=== PATIENT | male | born 1975 | race Caucasian/White ===

== ENCOUNTER 2018-04-11 06:44 | Observation (INO) ==
--- NOTE | 2018-04-11 07:08 | Emergency Department Note ---
Disposition Clinical Impression: Chest pain Qualifiers: Chest pain type: unspecified Qualified Code(s): R07.9 - Chest pain, unspecified Disposition: Admitted As Inpatient Condition: Fair Referrals: Jay Grider DO [Primary Care Provider] - Forms: ED Satisfaction Letter Time of Disposition: 09:38 Chest Pain HPI - General Chief Complaint: ED Chest Pain Stated Complaint: CP Time Seen by Provider: 04/11/18 06:47 Source: patient Limitations: no limitations Vital Signs Reviewed: Yes Nursing Notes Reviewed: Yes - History of Present Illness HPI Narrative: 42yo male presents from home for evaluation for chest pain. Onset 6am; this awoke him from sleep. Located mid sternal chest pressure with intermittent sharp stabbing pain. Non-radiating. No dyspnea, no nausea, no vomiting. History of GERD however these symptoms feel different. PMH: HTN, GERD Family history: Grandfather had VT in early 50's. ROS: Pos: as above Neg: fever, chills, nausea, vomiring, palpitations, dyspnea, diaphresis, diarrhea, constipation. Severity scale (1-10): 5 - Related Data Home Medications Medication Instructions Recorded Confirmed Lisinopril [Zestril] 40 mg PO DAILY 04/14/15 04/11/18 Metoprolol [Lopressor] 25 mg PO DAILY 04/14/15 04/11/18 Multivitamin [Multivitamins] 1 cap PO DAILY 04/14/15 04/11/18 Omeprazole [PriLOSEC] 20 mg PO DAILY 04/14/15 04/11/18 Ibuprofen [Ibu-200] 600 mg PO 1-2XD PRN 04/11/18 04/11/18 Rosuvastatin Calcium 20 mg PO DAILY 04/11/18 04/11/18 Sildenafil Citrate 50 mg PO DAILY PRN 04/11/18 04/11/18 Allergies Allergy/AdvReac Type Severity Reaction Status Date / Time No Known Allergies Allergy Verified 04/11/18 10:27 All systems ED: reviewed and negative except as stated. Review of Systems: As Per HPI Chest Pain PMH - Past Medical History Medical history: Reports: GERD, hyperlipidemia, hypertension Psychiatric history: Reports: depression - Social History Smoking Status: Former smoker Alcohol use: Reports: occasionally Drug use: Reports: none Physical Exam Vital Signs Reviewed General: Patient is alert, oriented, and in no acute distress. Head: atraumatic, normocephalic Eye: normal appearance, PERRL, EOMI, no scleral icterus, no conjunctival injection ENT: mucous membranes moist, normal external ear exam Neck: normal inspection, trachea midline, full ROM Chest: normal inspection, symmetric chest rise Respiratory: Good respiratory effort. Bilateral breath sounds are clear without wheezing, crackles, or rhonchi. Cardiovascular: Regular rate and rhythm. No clicks, rubs, gallops, or murmors. Faint split S1, normal S2. Abdomen: Bowel sounds present normoactive. Abdomen is soft, nondistended, and nontender. No guarding or rebound. No organomegaly noted. Musculoskeletal: Spontaneously moving all extremities. Skin: warm, dry, intact. Neuro: GCS 15. Alert and oriented 4. No focal neurologic deficits observed. Psych: Patient's affect is appropriate for situation. - General Limitations: no limitations General appearance: alert, in no apparent distress Course Course Narrative: EKG data 04/11/2018 at 06. Troponin I sinus rhythm rate of 74. DC 144, QRS 85, QTC 446. Normal axis. Nonspecific ST-T changes. Compared to previous dated 07/2014 showing no acute ischemic changes comparison. Serum hematology is unremarkable. Serum chemistries unremarkable. This includes a normal troponin. However, this is less than 4 hours before onset of symptoms. Chest x-ray is unremarkable. EKG is unremarkable. I discussed the above with the patient. He is agreeable to admission for chest pain rule out ACS. I am concerned given his story, family history, personal history of hypertension. I discussed the above with the admitting hospitalist, Dr. Faulkner, who agrees to accept the patient for continued evaluation of chest pain. Chest X-Ray 04/11/18 07:09 IMPRESSION: 1. No active pulmonary disease. D/ / Bari Brody MD / Bari Brody MD Interpreting Provider: Bari Brody MD Vital Signs Temperature 98.1 F 04/11/18 06:47 Pulse Rate 74 04/11/18 06:47 Respiratory Rate 18 04/11/18 06:47 Blood Pressure 165/104 04/11/18 06:47 O2 Sat by Pulse Oximetry 100 04/11/18 06:47 Temperature 98.1 F 04/11/18 06:47 Pulse Rate 67 04/11/18 08:45 Respiratory Rate 11 04/11/18 08:45 Blood Pressure 127/99 04/11/18 08:45 O2 Sat by Pulse Oximetry 97 04/11/18 08:45 Oxygen Delivery Oxygen Delivery Room Air Chest Pain - Lab Data Result diagrams: 04/11/18 07:40 04/11/18 07:19 Lab Results 04/11/18 04/11/18 04/11/18 Range/Units 07:09 07:19 07:40 WBC 5.3 (4.3-11.1) K/mcL RBC 4.86 (4.19-5.50) M/mcL Hgb 14.9 (12.9-16.9) g/dL Hct 43.9 (37.5-50.1) % MCV 90.3 (83.0-100.0) fL MCH 30.7 (28.0-33.3) pg MCHC 33.9 (31.6-35.5) g/dL RDW 12.2 (11.5-14.5) % Plt Count 196 (140-400) K/mcL MPV 10.2 (9.4-12.4) fL Immature Gran % 0.2 (0-4) % Seg Neutrophils % 54.5 % Lymphocytes % 26.8 % Monocytes % 9.0 % Eosinophils % 8.6 % Basophils % 0.9 % Neutrophils # 2.9 (1.6-8.9) K/mcL Lymphocytes # 1.4 (0.6-4.6) K/mcL Monocytes # 0.5 (0.0-1.3) K/mcL Eosinophils # 0.5 (0.0-0.6) K/mcL Basophils # 0.1 (0.0-0.2) K/mcL PT 12.6 H (9.4-12.1) Seconds INR 1.1 APTT 32.6 (26.0-36.0) Seconds Sodium 140 (136-145) mEq/L Potassium 3.8 (3.5-5.1) mEq/L Chloride 108 H (98-107) mEq/L Carbon Dioxide 26 (23-29) mEq/L BUN 9 (6-20) mg/dL Creatinine 0.95 (0.70-1.30) mg/dL Est GFR ( Amer) > 60 (> 60) Est GFR (Non-Af Amer) > 60 (> 60) BUN/Creatinine Ratio 9 (6-26) Glucose 97 (70-105) mg/dL Calculated Osmolality 289 (280-300) Calcium 9.4 (8.6-10.3) mg/dL Troponin I < 0.03 (< 0.04) ng/mL Lipase 32 (11-82) Units/L Heart Score - Score History: Moderately Suspicious EKG: Non Specific repolarisation Disturbance Age: Less than 45 Risk Factors: Equal/Greater than 3 risk factor or history of atherosclerotic disease Troponin: Less than normal limit HEART Score Total: 4
[2018-04-11] MEDS ORDERED: Aspirin 325 MG TABLET PO ONE (07:22)
[2018-04-11] MEDS ORDERED: Nitroglycerin 0.4 MG TAB.SUBL SL PRN ×2 (07:25→10:27)
[2018-04-11 07:52] LABS: Basophils # 0.1 K/mcL (0.0-0.2); Basophils % 0.9 %; Eosinophils # 0.5 K/mcL (0.0-0.6); Eosinophils % 8.6 %; Hematocrit 43.9 % (37.5-50.1); Hemoglobin 14.9 g/dL (12.9-16.9); Immature Granulocytes % 0.2 % (0-4); Lymphocytes # 1.4 K/mcL (0.6-4.6); Lymphocytes % 26.8 %; Mean Corpuscular HGB Conc 33.9 g/dL (31.6-35.5); Mean Corpuscular Hemoglobin 30.7 pg (28.0-33.3); Mean Corpuscular Volume 90.3 fL (83.0-100.0); Mean Platelet Volume 10.2 fL (9.4-12.4); Monocytes # 0.5 K/mcL (0.0-1.3); Neutrophils # 2.9 K/mcL (1.6-8.9); Platelet Count 196 K/mcL (140-400); Red Blood Count 4.86 M/mcL (4.19-5.50); Red Cell Distribution Width 12.2 % (11.5-14.5); Segmented Neutrophils % 54.5 %
[2018-04-11 07:59] LABS: INR 1.1; Prothrombin Time 12.6 Seconds (9.4-12.1)
--- NOTE | 2018-04-11 08:00 | Emergency Department Note ---
Disposition Clinical Impression: Chest pain Qualifiers: Chest pain type: unspecified Qualified Code(s): R07.9 - Chest pain, unspecified Disposition: Admitted As Inpatient Condition: Fair Referrals: Jay Grider DO [Primary Care Provider] - Forms: ED Satisfaction Letter General Adult HPI - General Chief complaint: ED Chest Pain Stated complaint: CP Time Seen by Provider: 04/11/18 06:47 Source: patient Limitations: no limitations - History of Present Illness Pain Scale: 5 - Related Data Home Medications Medication Instructions Recorded Confirmed Lisinopril [Zestril] 40 mg PO DAILY 04/14/15 04/11/18 Metoprolol [Lopressor] 25 mg PO DAILY 04/14/15 04/11/18 Multivitamin [Multivitamins] 1 cap PO DAILY 04/14/15 04/11/18 Omeprazole [PriLOSEC] 20 mg PO DAILY 04/14/15 04/11/18 Ibuprofen [Ibu-200] 600 mg PO 1-2XD PRN 04/11/18 04/11/18 Rosuvastatin Calcium 20 mg PO DAILY 04/11/18 04/11/18 Sildenafil Citrate 50 mg PO DAILY PRN 04/11/18 04/11/18 Allergies Allergy/AdvReac Type Severity Reaction Status Date / Time No Known Allergies Allergy Verified 04/11/18 10:27 Past Medical History - Past Medical History Medical history: Reports: GERD, hyperlipidemia, hypertension Psychiatric history: Reports: depression - Social History Smoking Status: Former smoker Smokeless Tobacco Status: Yes (Current tobacco chewing.) Alcohol use: Reports: occasionally Drug use: Reports: none Physical Exam - General Limitations: no limitations General appearance: alert, in no apparent distress Course Vital Signs Temperature 98.1 F 04/11/18 06:47 Pulse Rate 74 04/11/18 06:47 Respiratory Rate 18 04/11/18 06:47 Blood Pressure 165/104 04/11/18 06:47 O2 Sat by Pulse Oximetry 100 04/11/18 06:47 Temperature 98.1 F 04/11/18 06:47 Pulse Rate 75 04/11/18 11:03 Respiratory Rate 17 04/11/18 11:03 Blood Pressure 155/98 04/11/18 11:03 O2 Sat by Pulse Oximetry 98 04/11/18 11:03 Oxygen Delivery Oxygen Delivery Room Air Medical Decision Making - Lab Data Result diagrams: 04/11/18 07:40 04/11/18 07:19 Lab Results 04/11/18 04/11/18 04/11/18 Range/Units 07:09 07:19 07:40 WBC 5.3 (4.3-11.1) K/mcL RBC 4.86 (4.19-5.50) M/mcL Hgb 14.9 (12.9-16.9) g/dL Hct 43.9 (37.5-50.1) % MCV 90.3 (83.0-100.0) fL MCH 30.7 (28.0-33.3) pg MCHC 33.9 (31.6-35.5) g/dL RDW 12.2 (11.5-14.5) % Plt Count 196 (140-400) K/mcL MPV 10.2 (9.4-12.4) fL Immature Gran % 0.2 (0-4) % Seg Neutrophils % 54.5 % Lymphocytes % 26.8 % Monocytes % 9.0 % Eosinophils % 8.6 % Basophils % 0.9 % Neutrophils # 2.9 (1.6-8.9) K/mcL Lymphocytes # 1.4 (0.6-4.6) K/mcL Monocytes # 0.5 (0.0-1.3) K/mcL Eosinophils # 0.5 (0.0-0.6) K/mcL Basophils # 0.1 (0.0-0.2) K/mcL PT 12.6 H (9.4-12.1) Seconds INR 1.1 APTT 32.6 (26.0-36.0) Seconds Sodium 140 (136-145) mEq/L Potassium 3.8 (3.5-5.1) mEq/L Chloride 108 H (98-107) mEq/L Carbon Dioxide 26 (23-29) mEq/L BUN 9 (6-20) mg/dL Creatinine 0.95 (0.70-1.30) mg/dL Est GFR ( Amer) > 60 (> 60) Est GFR (Non-Af Amer) > 60 (> 60) BUN/Creatinine Ratio 9 (6-26) Glucose 97 (70-105) mg/dL Calculated Osmolality 289 (280-300) Calcium 9.4 (8.6-10.3) mg/dL Troponin I < 0.03 (< 0.04) ng/mL Lipase 32 (11-82) Units/L Attestation Statement - Attestation Attestation: I examined this patient and my medical decision-making was reviewed with the Resident Physician. I agree with the documented findings, disposition and treatment plan as described except to the extent set forth below. Patient to the ED with a chief complaint of chest pressure. Central chest. Nonradiating. No nausea vomiting or sweating with it. No cardiac history, but he does have 2 family members with coronary artery disease. He has hypertension and took his medicine last night. On exam is in no acute distress. Heart regular lungs clear. Plan. Cardiac workup. Heart score 4. Troponin negative here. Admitted for further cardiac workup. Chest X-Ray 04/11/18 07:09 IMPRESSION: 1. No active pulmonary disease. D/ / Bari Brody MD / Bari Brody MD Interpreting Provider: Bari Brody MD
[2018-04-11 08:02] LABS: Activated Partial Thrombo Time 32.6 Seconds (26.0-36.0)
[2018-04-11 08:13] LABS: BUN/Creatinine Ratio 9 (6-26); Blood Urea Nitrogen 9 mg/dL (6-20); Calcium 9.4 mg/dL (8.6-10.3); Carbon Dioxide 26 mEq/L (23-29); Chloride 108 mEq/L (98-107); Glucose 97 mg/dL (70-105); Lipase 32 Units/L (11-82); Osmolality,Calculated 289 (280-300); Potassium 3.8 mEq/L (3.5-5.1); Sodium 140 mEq/L (136-145); Troponin I < 0.03 ng/mL (< 0.04); eGFR For Non-African Americans > 60 (> 60)
--- NOTE | 2018-04-11 10:37 | Internal Med History&Physical ---
Date of Encounter: 04/11/18 Time of Encounter: 10:34 Internal Medicine - H&P: HPI Chief complaint: chest pain Admitted From: Home Plans for Post Hospital Care: Home History of present illness: Mr. Camacho is a 42 year old male history of hypertension GERD presenting emergency room for chest pain. Chest pain started this 6 AM, located in the midsternal, pressure-like, 5 out of 10, constant, last for several hours, after nitroglycerin and ASA he still had 2-3 out of 10 pain, no radiations, denies shortness of breath, he does complain of some palpation. Denies nausea vomiting. Vitals stable normal, lab was unremarkable, troponin is negative, EKG has no ST elevation or depression. Patient is placed on observation for echocardiogram and a stress test due to family history of CAD and hypertension. Past Med Surg Social Fam HX - Past Medical History Medical history: GERD, hyperlipidemia, hypertension Psychiatric history: depression - Past Surgical History Additional surgical history: hernia repair - Social History Smoking Status: Former smoker Smokeless Tobacco Status: Yes (Current tobacco chewing.) Alcohol use: occasionally Drug use: none Internal Medicine - H&P: Meds Lisinopril [Zestril] 40 mg PO HS 04/14/15 [History] Metoprolol [Lopressor] 25 mg PO HS 04/14/15 [History] Multivitamin [Multivitamins] 1 each PO HS 04/14/15 [History] Omeprazole [PriLOSEC] 20 mg PO HS 04/14/15 [History] Ibuprofen [Ibu-200] 600 mg PO 1-2XD PRN 04/11/18 [History] Rosuvastatin Calcium 20 mg PO DAILY 04/11/18 [History] Sildenafil Citrate 50 mg PO DAILY PRN 04/11/18 [History] Allergy/AdvReac Type Severity Reaction Status Date / Time No Known Allergies Allergy Verified 04/11/18 10:27 All Systems PM: A 10-system review of systems was performed and is negative for pertinent findings except as documented above in the HPI. - Constitutional Vitals: Temp Pulse Resp BP Pulse Ox 98.1 F 78 18 135/99 99 04/11/18 06:47 04/11/18 09:42 04/11/18 09:42 04/11/18 09:42 04/11/18 09:42 General appearance: Present: A&O X 3, pleasant Exam: CONSTITUTIONAL: Patient appears as an age appropriate male well developed, in no acute distress. EYES Clear sclerae, bilateral pupils are equal, reactive to light and accommodation. Extraocular movements are intact RESPIRATORY: No accessory muscle use, bilateral clear to auscultation, no wheezing, no crackles/rales. CARDIOVASCULAR: Regular heart rate, normal S1 and S2, no murmurs GASTROINTESTINAL: bowel sounds present, soft, no tenderness. No hepatosplenomegaly. No bilateral CVA tenderness MUSCULOSKELETAL: Joints in normal range of motion, no clubbing, no edema, no cyanosis. Bilateral peripheral pulses 2+ LYMPHATIC no lymphadenopathy in neck, groin and axilla bilaterally, no thyromegaly. NEUROLOGIC: CN II to XII are grossly intact, no focal neurological deficit. Deep tendon reflexes 2+ bilaterally. Normal light touch sensation to upper and lower extremity PSYCHIATRIC: Oriented x3, with good insight, mood is euthymic. No hallucinations or delusions. SKIN: Skin warm and dry, no rashes, no open wound. Internal Med - H&P Results - Labs CBC & Chem 7: 04/11/18 07:40 04/11/18 07:19 Labs: Short CBC 04/11/18 Range/Units 07:40 WBC 5.3 (4.3-11.1) K/mcL Hgb 14.9 (12.9-16.9) g/dL Hct 43.9 (37.5-50.1) % Plt Count 196 (140-400) K/mcL Neutrophils # 2.9 (1.6-8.9) K/mcL BMP 04/11/18 07:19 Sodium 140 Potassium 3.8 Chloride 108 H Carbon Dioxide 26 BUN 9 Creatinine 0.95 Glucose 97 Calcium 9.4 Cardiac Enzymes 04/11/18 Range/Units 07:19 Troponin I < 0.03 (< 0.04) ng/mL - Impressions ITS Impressions Chest X-Ray 04/11/18 07:09 IMPRESSION: 1. No active pulmonary disease. D/ / Bari Brody MD / Bari Brody MD Interpreting Provider: Bari Brody MD - Assessment and plan (1) Chest pain Current Visit: Yes Status: Acute Assessment and plan: Chest pain atypical, but in setting of family history of CAD hypertension, will place telemetry check troponins EKG order echocardiogram stress test Qualifiers: Chest pain type: unspecified Qualified Code(s): R07.9 - Chest pain, unspecified (2) GERD (gastroesophageal reflux disease) Current Visit: Yes Status: Acute Assessment and plan: Continue ppi Qualifiers: Esophagitis presence: without esophagitis Qualified Code(s): K21.9 - Gastro-esophageal reflux disease without esophagitis (3) Hypertension Current Visit: Yes Status: Chronic Assessment and plan: Continue lisinopril, metoprolol Qualifiers: Hypertension type: essential hypertension Qualified Code(s): I10 - Essential (primary) hypertension (4) Hyperlipidemia Current Visit: Yes Status: Chronic Assessment and plan: Continue statins Qualifiers: Hyperlipidemia type: unspecified Qualified Code(s): E78.5 - Hyperlipidemia, unspecified - Time Spent With Patient Total time spent is greater than 50% in coordination of care (as documented) at patient's floor/unit and/or counseling patient: Greater than 35 minutes
[2018-04-11] MEDS: Lisinopril 20 MG TABLET PO SCH (11:24)
[2018-04-12 05:18] LABS: Basophils # 0.1 K/mcL (0.0-0.2); Basophils % 0.8 %; Eosinophils # 0.6 K/mcL (0.0-0.6); Eosinophils % 8.5 %; Hematocrit 44.4 % (37.5-50.1); Hemoglobin 14.6 g/dL (12.9-16.9); Immature Granulocytes % 0.3 % (0-4); Lymphocytes # 2.3 K/mcL (0.6-4.6); Lymphocytes % 31.7 %; Mean Corpuscular HGB Conc 32.9 g/dL (31.6-35.5); Mean Corpuscular Hemoglobin 30.1 pg (28.0-33.3); Mean Corpuscular Volume 91.5 fL (83.0-100.0); Mean Platelet Volume 10.6 fL (9.4-12.4); Monocytes # 0.6 K/mcL (0.0-1.3); Monocytes % 7.9 %; Neutrophils # 3.7 K/mcL (1.6-8.9); Platelet Count 202 K/mcL (140-400); Red Blood Count 4.85 M/mcL (4.19-5.50); Red Cell Distribution Width 12.1 % (11.5-14.5); Segmented Neutrophils % 50.8 %
[2018-04-12 05:26] LABS: INR 1.2; Prothrombin Time 13.3 Seconds (9.4-12.1)
[2018-04-12 05:36] LABS: Alanine Aminotransferase 25 Units/L (7-52); Albumin 4.2 g/dL (3.5-5.7); Alkaline Phosphatase 63 Units/L (34-104); Aspartate Amino Transferase 17 Units/L (13-39); BUN/Creatinine Ratio 10 (6-26); Bilirubin,Total 0.6 mg/dL (0.3-1.0); Blood Urea Nitrogen 9 mg/dL (6-20); Calcium 9.2 mg/dL (8.6-10.3); Carbon Dioxide 24 mEq/L (23-29); Chloride 109 mEq/L (98-107); Globulin 2.1 g/dL (2.4-3.5); Glucose 90 mg/dL (70-105); Magnesium 2.1 mg/dL (1.6-2.6); Osmolality,Calculated 288 (280-300); Potassium 3.5 mEq/L (3.5-5.1); Sodium 140 mEq/L (136-145); Total Protein 6.3 g/dL (6.4-8.9); eGFR For Non-African Americans > 60 (> 60)
[2018-04-12] MEDS ORDERED: Acetaminophen 325 MG TABLET PO PRN (08:20)
[2018-04-12] MEDS ORDERED: Aspirin 81 MG TAB.CHEW PO SCH (09:00)
[2018-04-12] MEDS: Lisinopril 20 MG TABLET PO SCH (09:00)
--- NOTE | 2018-04-12 10:18 | Discharge Summary ---
<Wen Barahona P - Last Filed: 04/12/18 16:45> - NOTES TO OUTPATIENT PROVIDER Notes to Outpatient Provider: *He will follow-up with his primary care provider within a week. Orders not resulted at time of discharge: Pending orders 04/11/18 10:30 NM lorna perf SPECT multi [NM] Routine Date of Encounter: 04/12/18 Time of Encounter: 09:30 - Discharge Diagnosis (1) Chest pain Priority: Primary Status: Acute Qualifiers: Chest pain type: other chest pain Qualified Code(s): R07.89 - Other chest pain; R07.8 - Other chest pain (2) GERD (gastroesophageal reflux disease) Priority: Secondary Status: Chronic Qualifiers: Esophagitis presence: without esophagitis Qualified Code(s): K21.9 - Gastro-esophageal reflux disease without esophagitis (3) Headache above the eye region Priority: Primary Status: Acute (4) Hypertension Priority: Secondary Status: Chronic Qualifiers: Hypertension type: essential hypertension Qualified Code(s): I10 - Essential (primary) hypertension (5) Hyperlipidemia Priority: Secondary Status: Chronic Qualifiers: Hyperlipidemia type: unspecified Qualified Code(s): E78.5 - Hyperlipidemia, unspecified (6) DVT prophylaxis Priority: Primary Status: Suspected Hospital course: Mr. Camacho is a 42 year old male with past medical history of hypertension, hyperlipidemia, GERD, past smoker assented to ED for sharp severe mid sternal pressure-like chest pain at rest ,56/10, not radiating anywhere, lasted for several hours. The pain was relieved with nitroglycerin tablet and aspirin. EKG done in ED did not show any STT abnormality, chest x-ray done in ED was normal, serial troponin was negative. We admitted him for cardiac workup, monitoring and further management. The echocardiography done in inpatient s howed left pedicle ejection fraction 6570 % with mild left ventricular diastolic dysfunction, the nuclear stress test was normal (gated ejection fraction 75% ,exercise EKG negative for ischemia no obvious arrhythmia). After admission the patient has been improved , he does not have any chest pain now, but admits mild headache, his vital signs stable. We are planning him to discharge and he will follow-up with his primary care provider within a week. - Time Spent with Patient Total time spent providing and/or coordinating discharge services: - Discharge Medications Prescriptions: RX: Aspirin 81 mg PO DAILY 30 Days #30 tab.chew Home Medications: RX: Lisinopril [Zestril] 40 mg PO DAILY 04/14/15 [History] RX: Metoprolol [Lopressor] 25 mg PO DAILY 04/14/15 [History] RX: Multivitamin [Multivitamins] 1 cap PO DAILY 04/14/15 [History] RX: Omeprazole [PriLOSEC] 20 mg PO DAILY 04/14/15 [History] RX: Ibuprofen [Ibu-200] 600 mg PO 1-2XD PRN 04/11/18 [History] RX: Rosuvastatin Calcium 20 mg PO DAILY 04/11/18 [History] RX: Sildenafil Citrate 50 mg PO DAILY PRN 04/11/18 [History] RX: Aspirin 81 mg PO DAILY 30 Days #30 tab.chew 04/12/18 [Rx] Allergies/Adverse Reactions: Allergy/AdvReac Type Severity Reaction Status Date / Time No Known Allergies Allergy Verified 04/11/18 10:27 Date of admission: 04/11/18 12:39 Primary care physician: Jay Grider DO - Constitutional Vitals: Temp Pulse Resp BP Pulse Ox 97.7 F 81 18 135/86 97 04/12/18 08:35 04/12/18 08:35 04/12/18 08:35 04/12/18 08:35 04/12/18 08:35 General appearance: Present: A&O X 3, pleasant, no acute distress, answers questions appropriately Exam: CONSTITUTIONAL: Patient appears as an age appropriate male well developed, in no acute distress. EYES Clear sclerae, bilateral pupils are equal, reactive to light and accommodation. Extraocular movements are intact RESPIRATORY: No accessory muscle use, bilateral clear to auscultation, no wheezing, no crackles/rales. CARDIOVASCULAR: Regular heart rate, normal S1 and S2, no murmurs GASTROINTESTINAL: bowel sounds present, soft, no tenderness. No hepatosplenomegaly. No bilateral CVA tenderness MUSCULOSKELETAL: Joints in normal range of motion, no clubbing, no edema, no cyanosis. Bilateral peripheral pulses 2+ LYMPHATIC no lymphadenopathy in neck, groin and axilla bilaterally, no thyromegaly. NEUROLOGIC: CN II to XII are grossly intact, no focal neurological deficit. Deep tendon reflexes 2+ bilaterally. Normal light touch sensation to upper and lower extremity PSYCHIATRIC: Oriented x3, with good insight, mood is euthymic. No hallucinations or delusions. SKIN: Skin warm and dry, no rashes, no open wound. - Patient Status Disposition: Home, Self-Care Condition: Good Functional capacity at discharge: independent ambulation Overall status at discharge: patient is progressing back to baseline - Discharge Instructions Follow Up With: Jay Grider DO [Primary Care Provider] - 04/17/18 11:30 am - Diet and Activity Activity: resume usual activities as tolerated Diet: regular diet <[id number] - Last Filed: 04/12/18 16:56> Orders not resulted at time of discharge: Pending orders 04/11/18 10:30 NM lorna perf SPECT multi [NM] Routine Date of Encounter: 04/12/18 Hospital course: Mr. Camacho is a 42 year old male - Time Spent with Patient Total time spent providing and/or coordinating discharge services: Date of admission: 04/11/18 12:39 Primary care physician: Jay Grider DO - Constitutional Vitals: Temp Pulse Resp BP Pulse Ox 97.5 F L 52 16 125/82 97 04/12/18 11:51 04/12/18 11:51 04/12/18 11:51 04/12/18 11:51 04/12/18 11:51 - Attending Attestation I examined this patient and my medical decision-making was reviewed with the Resident Physician Dr. Barahona. I agree with the documented findings, disposition and treatment plan as described except to the extent set forth below. Mr. Camacho is a 42 year old male history of hypertension GERD presented to emergency room with chest pain located at sub sternal region. Patient was admitted in the hospital and placed him on hospital monitor. His serial troponin came back is negative. He did go for nuclear stress test which came back is negative. At this point I recommended patient to continue taking aspirin 81 mg PO daily along with his beta margaret. He denied any more active chest pain Chest: Diminished BS b/l, no crackles no rales Heart: S1S2+ RRR No murmur
[2018-04-12 11:54] VITALS: BP 125/82
--- NOTE | 2018-04-12 21:40 | Electrocardiograph Report ---
[address] [place], [place] [address] Test Date: 2018-04-11 Pat Name: Raúl Camacho Department: EXAM4 Room: 3B12 Gender: M Emergency Specialist: : 1975 Requested By: Marilee Faulkner Order Number: [id number] Reading MD: Marvin Long Measurements Intervals [place] Rate: 67 P: 64 NC: 159 QRS: 58 QRSD: 93 T: 33 QT: 403 QTc: 426 Interpretive Statements Sinus rhythm Electronically Signed On 04-12-2018 21:38:44 EST by Marvin Long
== END 2018-04-12 12:45 | disposition home or self-care (01) ==
LOC: EMEROOARM 06:44 → 3BNU 06:44 → SUATTDRO 12:39 → 3BNU 12:59
PROVIDERS: ADMIT Hospitalist; ATTEND Family Medicine